=== PATIENT | male | born 1940 | race Caucasian/White ===

== ENCOUNTER 2021-11-15 15:26 | Inpatient (IN) | payer OTHER ==
[~2021-11-15] VITALS: Ht 185.4 cm; Wt 82.6 kg
[~2021-11-15 15:26] MED LIST: MICARDIS20 MG PO; TOPCARE OMEPRAZ20 MG PO; ZOLOFT25 MG PO
[2021-11-15 15:36] VITALS: BP 111/70
[2021-11-15 16:05] LABS: BASO % 0.5 % (0.0-1.0); EOS # 0.2 10*3/uL (0.0-0.4); EOS % 3.3 % (1.0-4.0); HEMATOCRIT 42.5 % (42.0-52.0); LYMPH # 1.5 10*3/uL (1.3-4.4); LYMPH % 23.7 % (27.0-41.0); MEAN CELL VOLUME 96.4 fl (80.0-94.0); MEAN CORPUSCULAR HGB CONC 33.2 g/dl (33.0-37.0); MEAN PLATELET VOLUME 8.9 fl (9.6-12.3); MONO # 0.6 10*3/uL (0.1-1.0); MONO % 9.1 % (3.0-9.0); NEUT # 3.9 10*3/uL (2.3-7.9); NEUT % 63.1 % (47.0-73.0); PLATELET COUNT AUTOMATED 202 10*3/uL (130-400); RED BLOOD COUNT 4.41 10*6/uL (4.50-5.90); RED CELL DISTRI WIDTH 13.7 % (0-14.5); WHITE BLOOD COUNT 6.1 10*3/uL (4.8-10.8)
[2021-11-15] MEDS ORDERED: PAXIL20 M1 PO (16:16)
[2021-11-15] MEDS ORDERED: NAMENDA10 MG PO (16:17)
[2021-11-15] MEDS ORDERED: LASIX20 MG PO (16:17)
[2021-11-15] MEDS ORDERED: K-TAB10 MEQ PO (16:18)
[2021-11-15 16:19] LABS: ACT PARTIAL THROMBO TIME 25.4 SECONDS (20.0-32.1)
[2021-11-15] MEDS ORDERED: ZYRTEC10 M3 PO (16:19)
[2021-11-15] MEDS ORDERED: RISPERDAL1 M1 PO (16:19)
[2021-11-15] MEDS ORDERED: VITAMIN D3125 MC1 PO (16:20)
[2021-11-15] MEDS ORDERED: ZINC30 M1 PO (16:21)
[2021-11-15] MEDS ORDERED: VITAMIN C1000 M5 PO (16:21)
[2021-11-15] MEDS ORDERED: ASPIRIN ADULT L81 M2 PO (16:22)
[2021-11-15] MEDS ORDERED: ALEVE220 MG PO (16:22)
[2021-11-15 16:23] LABS: ALKALINE PHOSPHATASE 120 U/L (45-117); BUN 18 mg/dl (7-24); CHLORIDE 105 mmol/L (98-107); CREATININE 1.07 mg/dL (0.70-1.30); POTASSIUM 4.1 mmol/L (3.5-5.1); SGOT/AST 19 IU/L (3-35); SGPT/ALT 27 U/L (12-78); SODIUM 138 mmol/L (136-145); TOTAL PROTEIN 6.8 gm/dL (6.4-8.2)
[2021-11-15 20:00] VITALS: BP 151/62
[2021-11-15 20:36] LABS: BILIRUBIN Negative (Negative); BLOOD Negative (Negative); CLARITY Cloudy (Clear); COLOR Yellow (Yellow); GLUCOSE Negative (Negative); KETONE Negative (Negative); LEUKO ESTERASE Negative (Negative); NITRITE Negative (Negative)
[2021-11-15 20:39] LABS: PH 8.5 (4.5-8.0)
[2021-11-15 20:46] LABS: BACTERIA 2+
[2021-11-15 21:31] VITALS: BP 151/62
[2021-11-16] VITALS: BP 157/88
[2021-11-16 06:00] LABS: BUN 15 mg/dl (7-24); CHLORIDE 103 mmol/L (98-107); CREATININE 0.96 mg/dL (0.70-1.30); POTASSIUM 3.5 mmol/L (3.5-5.1); SODIUM 138 mmol/L (136-145)
[2021-11-16 06:23] LABS: BASO % 0.5 % (0.0-1.0); EOS # 0.2 10*3/uL (0.0-0.4); EOS % 3.2 % (1.0-4.0); HEMATOCRIT 43.1 % (42.0-52.0); LYMPH # 1.9 10*3/uL (1.3-4.4); LYMPH % 31.9 % (27.0-41.0); MEAN CELL VOLUME 97.1 fl (80.0-94.0); MEAN CORPUSCULAR HGB 32.2 pg (27.0-31.0); MEAN CORPUSCULAR HGB CONC 33.2 g/dl (33.0-37.0); MEAN PLATELET VOLUME 9.1 fl (9.6-12.3); MONO # 0.5 10*3/uL (0.1-1.0); NEUT # 3.3 10*3/uL (2.3-7.9); NEUT % 55.2 % (47.0-73.0); PLATELET COUNT AUTOMATED 194 10*3/uL (130-400); RED BLOOD COUNT 4.44 10*6/uL (4.50-5.90); RED CELL DISTRI WIDTH 13.8 % (0-14.5); WHITE BLOOD COUNT 5.9 10*3/uL (4.8-10.8)
[2021-11-16 08:00] VITALS: BP 140/81
[2021-11-16 09:28] LABS: VITAMIN D, 25-HYDROXY 78.3 ng/mL (30-100)
[2021-11-16 12:00] VITALS: BP 108/60
[2021-11-16 16:00] VITALS: BP 134/71
[2021-11-16 20:00] VITALS: BP 100/67
[2021-11-17] VITALS: BP 127/73
[2021-11-17 08:00] VITALS: BP 133/60
[2021-11-17 12:00] VITALS: BP 136/81
[2021-11-17 16:00] VITALS: BP 103/63
[2021-11-17 20:00] VITALS: BP 98/57
[2021-11-18] VITALS: BP 130/78
[2021-11-18 08:00] VITALS: BP 140/77
[2021-11-18 12:00] VITALS: BP 121/68
[2021-11-18 16:00] VITALS: BP 102/50
[2021-11-18 18:04] VITALS: BP 124/66
[2021-11-18 20:00] VITALS: BP 132/64
[2021-11-19] VITALS: BP 127/66
[2021-11-19 08:00] VITALS: BP 134/51
[2021-11-19 12:00] VITALS: BP 114/64
== END 2021-11-19 13:30 | DRG 884 ==
LOC: ED 15:26 → 5E 20:46 → EDHOLD 20:46 → 5E 21:01
PROVIDERS: Emergency Medicine; Hospitalist; ADMIT Family Medicine; ATTEND Family Medicine
DX: R54 Age-related physical debility (principal); E87.2 Acidosis; M48.062 Spinal stenosis, lumbar region with neurogenic claudication; E83.41 Hypermagnesemia; K21.9 Gastro-esophageal reflux disease without esophagitis; Z74.09 Other reduced mobility; R73.9 Hyperglycemia, unspecified; R73.03 Prediabetes; Z20.822 Contact with and (suspected) exposure to COVID-19; D75.89 Other specified diseases of blood and blood-forming organs; R62.7 Adult failure to thrive; I10 Essential (primary) hypertension; R00.1 Bradycardia, unspecified; G30.9 Alzheimer's disease, unspecified; F02.80 Dementia in other diseases classified elsewhere, unspecified severity, without behavioral disturbance, psychotic disturbance, mood disturbance, and anxiety; Z79.82 Long term (current) use of aspirin; Z79.899 Other long term (current) drug therapy; Z68.24 Body mass index [BMI] 24.0-24.9, adult